=== PATIENT | female | born 1935 | race Caucasian/White ===

== ENCOUNTER → 2018-08-07 | Outpatient (CLI) | payer MEDICARE | END | disposition home or self-care (01) | LOC: RAD 15:26 | PROVIDERS: ATTEND Orthopaedic Surgery | DX: M47.812 Spondylosis without myelopathy or radiculopathy, cervical region (principal) | CPT/HCPCS: 72050 ==

== ENCOUNTER 2018-10-17 07:53 | Observation (INO) | payer MEDICARE ==
[~2018-10-17] VITALS: Ht 176 cm; Wt 65.4 kg
[2018-10-17] MEDS ORDERED: ASPIRIN 81 MG TABLET CHEW ONE (08:11)
[2018-10-17 08:17] LABS: BASOPHILS # (AUTO) 0.03 x10^3/uL (0-0.1); BASOPHILS % (AUTO) 0 % (0-1); EOSINOPHILS # (AUTO) 0.05 x10^3/uL (0-0.4); EOSINOPHILS % (AUTO) 1 % (1-7); LYMPHOCYTES # (AUTO) 1.59 x10^3/uL (1-3.4); LYMPHOCYTES % (AUTO) 23 % (22-44); MD NO; MEAN CORPUSCULAR HEMOGLOBIN 31.1 pg (27.0-34.8); MEAN CORPUSCULAR VOLUME 97.1 fL (80-100); MEAN PLATELET VOLUME 8.1 fL (7.4-10.4); MONOCYTES # (AUTO) 0.44 x10^3/uL (0.2-0.8); MONOCYTES % (AUTO) 6 % (2-9); NEUTROPHILS # (AUTO) 4.69 x10^3/uL (1.8-6.8); NEUTROPHILS % (AUTO) 69 % (42-75); PLATELET COUNT 175 x10^3/uL (130-400); RED BLOOD COUNT 4.84 x10^6/uL (3.82-5.3); RED CELL DISTRIBUTION WIDTH 14.1 % (9.6-15.2)
[2018-10-17] MEDS ORDERED: FLUT9.9S16 NAS (08:24)
[2018-10-17] MEDS ORDERED: UBID30CA9 PO (08:25)
[2018-10-17] MEDS ORDERED: LUTE20TA PO (08:26)
[2018-10-17 08:27] LABS: ANION GAP 7 mmol/L (5-15); CALCIUM 8.9 mg/dL (8.5-10.1); CHLORIDE 105 mmol/L (98-107)
[2018-10-17 08:35] LABS: ALANINE AMINOTRANSFERASE 26 U/L (12-78); ALKALINE PHOSPHATASE 64 U/L (45-117); BILIRUBIN,TOTAL 0.7 mg/dL (0.2-1.0); CREATININE 0.87 mg/dL (0.55-1.02); TOTAL PROTEIN 7.4 g/dL (6.4-8.2); TROPONIN I < 0.015 ng/mL (0.000-0.045)
[2018-10-17] MEDS ORDERED: SODIUM CHLORIDE FLUSH 10ML SYR IVF ONE (09:00)
[2018-10-17] MEDS ORDERED: ASPIRIN 81 MG TABLET CHEW PO ONE (09:00)
--- NOTE | 2018-10-17 11:24 | NUR ---
[facility] TELEPHONE HAND-OFF REPORT GIVEN TO RN KATHERIN. PATIENT READY TO GO TO HOSPITAL ROOM.
[2018-10-17 11:55] VITALS: BP 152/87
[2018-10-17 13:54] VITALS: BP 149/84
[2018-10-17] MEDS ORDERED: NITROGLYCERIN 0.4 MG BOTTLE (25 TABS) SL PRN (14:30)
[2018-10-17] MEDS: ENOXAPARIN 40 MG/0.4 ML SQ SCH (14:51)
[2018-10-17 16:02] LABS: TROPONIN I < 0.015 ng/mL (0.000-0.045)
[2018-10-17 20:41] VITALS: BP 144/69
[2018-10-17 20:43] LABS: TROPONIN I < 0.015 ng/mL (0.000-0.045)
[2018-10-17] MEDS ORDERED: ACETAMINOPHEN 325 MG TABLET PO PRN (23:00)
[2018-10-17] MEDS ORDERED: ACETAMINOPHEN 325 MG TABLET ONE (23:05)
[2018-10-18 00:20] VITALS: BP 138/65
[2018-10-18] MEDS: ASPIRIN 325 MG TABLET EC PO SCH (05:52)
[2018-10-18 06:13] LABS: CHOL/HDL RATIO 2.9; LDL/HDL RATIO 1.6 (0.5-3.0)
[2018-10-18 10:53] VITALS: BP 121/73
[2018-10-18] MEDS: ENOXAPARIN 40 MG/0.4 ML SQ SCH (15:14)
[2018-10-18 16:11] VITALS: BP 119/67
[2018-10-18 18:17] VITALS: BP 133/78
[2018-10-18 19:51] VITALS: BP 142/78
[2018-10-19 01:22] VITALS: BP 132/69
[2018-10-19] MEDS: ASPIRIN 325 MG TABLET EC PO SCH (05:28)
[2018-10-19] MEDS ORDERED: REGADENOSON 0.4 MG/5 ML SYRINGE ONE (08:03)
[2018-10-19 08:36] VITALS: BP 154/80
[2018-10-19 13:00] VITALS: BP 95/58
[2018-10-19] MEDS: ENOXAPARIN 40 MG/0.4 ML SQ SCH (14:06)
== END 2018-10-19 15:20 | disposition home or self-care (01) ==
LOC: ED 09:06 → INTOOBSV 09:17 → EDIP 09:17 → 5SO 11:43 → DCLOUNGE 10-19 15:07
PROVIDERS: ADMIT Internal Medicine; ATTEND Internal Medicine
DX: R07.89 Other chest pain (principal); E78.5 Hyperlipidemia, unspecified; M17.11 Unilateral primary osteoarthritis, right knee; R00.2 Palpitations; Z79.899 Other long term (current) drug therapy
CPT/HCPCS: 36415; 71045; 78452; 80053; 80061; 84443; 84484; 85025; 85379; 93005; 93017; 93306; 96372; 99284; A9502; C9898; G0378; J1650; J2785

== ENCOUNTER 2019-03-30 08:56 | Inpatient (IN) | payer MEDICARE ==
[~2019-03-30] VITALS: Ht 175.3 cm; Wt 56.5 kg
[~2019-03-30 08:56] MED LIST: ASPI-515 PO; CEFD300C37 PO; CIPR500T3 PO; FLUT9.9S16 NAS; LUTE20TA PO; POLY17PO5 PO; SENN-193 PO; UBID30CA9 PO
[2019-03-30] MEDS ORDERED: MORPHINE SULFATE 4 MG/ML, 1ML IVPush PRN (09:30)
[2019-03-30] MEDS ORDERED: FENTANYL PF 100 MCG/2ML IV PRN (09:30)
[2019-03-30] MEDS ORDERED: PLEASE ENTER HEIGHT AND WEIGHT MC SCH (09:30)
[2019-03-30] MEDS ORDERED: ONDANSETRON 2MG/ML, 2ML IV PRN (09:30)
[2019-03-30] MEDS ORDERED: LABETALOL 5 MG/ML SYR. (IV ONLY) IV PRN (09:30)
[2019-03-30] MEDS ORDERED: OXYcodone 5 MG/5 ML ORAL.SOL UDC PO PRN (09:30)
[2019-03-30] MEDS ORDERED: hydrALAzine 20 MG/ML, 1ML IV PRN (09:30)
[2019-03-30] MEDS ORDERED: PROMETHAZINE 25 MG/ML, 1ML IV PRN (09:30)
[2019-03-30] MEDS ORDERED: FENTANYL PF 250 MCG/5ML ONE (09:47)
[2019-03-30 09:50] VITALS: BP 149/72
[2019-03-30] MEDS ORDERED: SEROQUEL PO (10:05)
[2019-03-30] MEDS ORDERED: TYLENO (10:05)
[2019-03-30] MEDS ORDERED: TYLENOL PO (10:06)
[2019-03-30] MEDS: LACTATED RINGERS 1,000 ML IV SCH (10:08)
[2019-03-30] MEDS ORDERED: MIDAZOLAM 1 MG/ML, 2ML ONE (10:48)
[2019-03-30] MEDS ORDERED: EPHEDRINE 50 MG/ML, 1ML ONE (11:10)
[2019-03-30] MEDS ORDERED: ONDANSETRON 2MG/ML, 2ML ONE (11:12)
[2019-03-30] MEDS ORDERED: TRANEXAMIC ACID 100 MG/ML, 10ML ONE ×2 (11:15)
[2019-03-30] MEDS ORDERED: ONDANSETRON ODT 4 MG PO PRN (14:30)
[2019-03-30] MEDS ORDERED: HYDROmorphone 2MG TABLET PO PRN (14:30)
[2019-03-30] MEDS: CEFAZOLIN PMX 1GM/50ML 50 ML IVPB SCH (18:29)
[2019-03-30] MEDS: KETOROLAC 30 MG/1 ML IVPush SCH (18:30)
[2019-03-30 19:27] VITALS: BP 125/74
[2019-03-30] MEDS: SODIUM CHLORIDE FLUSH 10ML SYR IVF SCH (21:00)
[2019-03-31 00:13] VITALS: BP 109/65
[2019-03-31] MEDS: CEFAZOLIN PMX 1GM/50ML 50 ML IVPB SCH (02:47)
[2019-03-31] MEDS: KETOROLAC 30 MG/1 ML IVPush SCH ×2 (03:18→11:44)
[2019-03-31] MEDS: LACTATED RINGERS 1,000 ML IV SCH (05:06)
[2019-03-31 07:12] VITALS: BP 107/60
[2019-03-31] MEDS: SODIUM CHLORIDE FLUSH 10ML SYR IVF SCH ×2 (08:40→18:54)
[2019-03-31] MEDS: ENOXAPARIN 40 MG/0.4 ML SQ SCH ×2 (08:41→09:00)
[2019-03-31 13:12] VITALS: BP 130/70
[2019-03-31 18:45] VITALS: BP 108/63
[2019-03-31] MEDS: QUETIAPINE 25MG TABLET PO SCH (20:29)
[2019-03-31] MEDS: HYDROmorphone 2 MG/ML, 1ML IVPush PRN (22:31)
[2019-04-01 01:38] VITALS: BP 117/66
[2019-04-01] MEDS: LACTATED RINGERS 1,000 ML IV SCH ×2 (02:04→22:00)
[2019-04-01 05:29] LABS: CREATININE 0.57 mg/dL (0.55-1.02)
[2019-04-01 07:37] VITALS: BP 138/75
[2019-04-01] MEDS: ENOXAPARIN 40 MG/0.4 ML SQ SCH (08:49)
[2019-04-01] MEDS: SODIUM CHLORIDE FLUSH 10ML SYR IVF SCH ×2 (08:50→19:18)
[2019-04-01] MEDS: HYDROmorphone 2 MG/ML, 1ML IVPush PRN ×2 (09:10→14:31)
[2019-04-01 14:45] VITALS: BP 113/68
[2019-04-01 19:12] VITALS: BP 129/72
[2019-04-01] MEDS: QUETIAPINE 25MG TABLET PO SCH (19:18)
[2019-04-02 02:03] VITALS: BP 126/74
[2019-04-02 08:53] VITALS: BP 82/51
[2019-04-02] MEDS: SODIUM CHLORIDE FLUSH 10ML SYR IVF SCH ×2 (09:00→21:00)
[2019-04-02 12:57] VITALS: BP 90/59
[2019-04-02] MEDS: LACTATED RINGERS 1,000 ML IV SCH (18:00)
[2019-04-02 21:00] VITALS: BP 152/73
[2019-04-02] MEDS: QUETIAPINE 25MG TABLET PO SCH (21:34)
[2019-04-03 02:32] VITALS: BP 103/64
[2019-04-03 08:00] VITALS: BP 123/56
[2019-04-03] MEDS: SODIUM CHLORIDE FLUSH 10ML SYR IVF SCH ×2 (08:53→21:00)
[2019-04-03] MEDS: LACTATED RINGERS 1,000 ML IV SCH (10:05)
[2019-04-03] MEDS: HYDROcodone/APAP 7.5-325MG/15ML UDC PO PRN (14:48)
[2019-04-03] MEDS: DOCUSATE 100 MG CAPSULE PO SCH (20:10)
[2019-04-03] MEDS: QUETIAPINE 25MG TABLET PO SCH (20:10)
[2019-04-03 20:20] VITALS: BP 145/79
[2019-04-03] MEDS ORDERED: POLYETHYLENE GLYCOL 17 GM PACKET PO ONE (21:00)
[2019-04-04] MEDS: HYDROcodone/APAP 7.5-325MG/15ML UDC PO PRN ×4 (00:46→10:27)
[2019-04-04 01:16] VITALS: BP 151/81
[2019-04-04 06:54] VITALS: BP 130/71
[2019-04-04] MEDS ORDERED: ASPI-515 PO (07:25)
[2019-04-04] MEDS: LACTATED RINGERS 1,000 ML IV SCH (08:07)
[2019-04-04] MEDS: SODIUM CHLORIDE FLUSH 10ML SYR IVF SCH ×2 (08:08→20:53)
[2019-04-04] MEDS: ASPIRIN 81 MG TABLET CHEW PO SCH ×2 (08:46→20:53)
[2019-04-04] MEDS: DOCUSATE 100 MG CAPSULE PO SCH ×2 (08:46→20:53)
[2019-04-04] MEDS ORDERED: ZIPRASIDONE 20 MG INJ IM ONE ×3 (11:30→17:30)
[2019-04-04 12:58] VITALS: BP 132/63
[2019-04-04] MEDS: BISACODYL 10 MG SUPP PR PRN (15:20)
[2019-04-04 15:26] LABS: BASOPHILS # (AUTO) 0.01 x10^3/uL (0-0.1); BASOPHILS % (AUTO) 0 % (0-1); EOSINOPHILS # (AUTO) 0.07 x10^3/uL (0-0.4); EOSINOPHILS % (AUTO) 1 % (1-7); LYMPHOCYTES # (AUTO) 1.37 x10^3/uL (1-3.4); LYMPHOCYTES % (AUTO) 14 % (22-44); MD NO; MEAN CORPUSCULAR HEMOGLOBIN 30.3 pg (27.0-34.8); MEAN CORPUSCULAR HGB CONC 32.3 g/dL (32.4-35.8); MEAN PLATELET VOLUME 7.1 fL (7.4-10.4); MONOCYTES # (AUTO) 0.52 x10^3/uL (0.2-0.8); MONOCYTES % (AUTO) 6 % (2-9); NEUTROPHILS # (AUTO) 7.51 x10^3/uL (1.8-6.8); NEUTROPHILS % (AUTO) 79 % (42-75); PLATELET COUNT 312 x10^3/uL (130-400); RED BLOOD COUNT 4.19 x10^6/uL (3.82-5.3); RED CELL DISTRIBUTION WIDTH 13.6 % (9.6-15.2)
[2019-04-04 15:35] LABS: ALANINE AMINOTRANSFERASE 40 U/L (12-78); ALBUMIN 2.6 g/dL (3.4-5.0); ANION GAP 7 mmol/L (5-15); CALCIUM 8.6 mg/dL (8.5-10.1); CHLORIDE 105 mmol/L (98-107)
[2019-04-04 16:02] LABS: ALKALINE PHOSPHATASE 80 U/L (45-117); BILIRUBIN,TOTAL 0.7 mg/dL (0.2-1.0); CREATININE 0.68 mg/dL (0.55-1.02); TOTAL PROTEIN 6.4 g/dL (6.4-8.2)
[2019-04-04] MEDS ORDERED: ZIPRASIDONE 20 MG INJ IM PRN (17:30)
[2019-04-04] MEDS: QUETIAPINE 25MG TABLET PO SCH (20:53)
[2019-04-04 21:23] VITALS: BP 134/72
[2019-04-05] VITALS (10 sets, daily range): BP systolic 92–146; BP diastolic 51–87
[2019-04-05] MEDS: LACTATED RINGERS 1,000 ML IV SCH (06:00)
--- NOTE | 2019-04-05 08:02 | NUR ---
CAROLINA GAYTAN Fall Risk Medication(s) present and receiving anticoagulants. Signed: 04/05/19 at 0803 by Kaleb GAMEZ
[2019-04-05] MEDS: SODIUM CHLORIDE FLUSH 10ML SYR IVF SCH ×2 (08:31→20:36)
[2019-04-05] MEDS: DOCUSATE 100 MG CAPSULE PO SCH (08:32)
[2019-04-05] MEDS: ASPIRIN 81 MG TABLET CHEW PO SCH ×2 (08:32→20:35)
[2019-04-05] MEDS ORDERED: ERGOCALCIFEROL 50,000 UNIT CAPSULE PO SCH (11:00)
[2019-04-05 12:52] LABS: MICROSCOPIC INDICATED
[2019-04-05 13:23] LABS: CULTURE INDICATED? NO
[2019-04-05] MEDS: DOCUSATE 50 MG/5 ML, 10ML UDC PO SCH (20:34)
[2019-04-05] MEDS: QUETIAPINE 25MG TABLET PO SCH (20:35)
[2019-04-06] MEDS: LACTATED RINGERS 1,000 ML IV SCH ×2 (02:00→20:18)
[2019-04-06 04:10] VITALS: BP 128/74
[2019-04-06] MEDS: SODIUM CHLORIDE FLUSH 10ML SYR IVF SCH ×2 (09:00→20:18)
[2019-04-06 09:16] VITALS: BP 142/84
[2019-04-06] MEDS: ASPIRIN 81 MG TABLET CHEW PO SCH ×2 (09:17→20:18)
[2019-04-06] MEDS: DOCUSATE 50 MG/5 ML, 10ML UDC PO SCH ×2 (09:18→20:18)
[2019-04-06] MEDS: ACETAMINOPHEN 325 MG TABLET PO PRN (13:37)
[2019-04-06 14:12] VITALS: BP 106/63
[2019-04-06 20:05] VITALS: BP 147/76
[2019-04-06] MEDS: MELATONIN 5 MG TABLET PO SCH (20:18)
[2019-04-06] MEDS: QUETIAPINE 25MG TABLET PO SCH (20:18)
[2019-04-07 01:45] VITALS: BP 140/70
[2019-04-07 04:55] LABS: CREATININE 0.61 mg/dL (0.55-1.02)
[2019-04-07 09:54] VITALS: BP 108/66
[2019-04-07] MEDS: ASPIRIN 81 MG TABLET CHEW PO SCH ×2 (09:58→20:20)
[2019-04-07] MEDS: DOCUSATE 50 MG/5 ML, 10ML UDC PO SCH ×2 (09:58→20:19)
[2019-04-07] MEDS: SODIUM CHLORIDE FLUSH 10ML SYR IVF SCH ×2 (09:59→20:21)
[2019-04-07 14:02] VITALS: BP 101/53
[2019-04-07] MEDS ORDERED: ACET325T26 PO (16:10)
[2019-04-07] MEDS ORDERED: MELA5TAB14 PO (16:10)
[2019-04-07] MEDS ORDERED: BISA10SU4 PR (16:10)
[2019-04-07] MEDS ORDERED: QUET25TA7 PO (16:10)
[2019-04-07] MEDS: LACTATED RINGERS 1,000 ML IV SCH (18:00)
[2019-04-07 20:15] VITALS: BP 129/75
[2019-04-07] MEDS: QUETIAPINE 25MG TABLET PO SCH (20:19)
[2019-04-07] MEDS: MELATONIN 5 MG TABLET PO SCH (20:20)
[2019-04-08] MEDS: HYDROcodone/APAP 7.5-325MG/15ML UDC PO PRN (03:28)
[2019-04-08] MEDS: BISACODYL 10 MG SUPP PR PRN (06:01)
[2019-04-08] MEDS: LACTATED RINGERS 1,000 ML IV SCH (07:21)
[2019-04-08] MEDS: ASPIRIN 81 MG TABLET CHEW PO SCH (08:34)
[2019-04-08] MEDS: SODIUM CHLORIDE FLUSH 10ML SYR IVF SCH ×2 (09:00→20:15)
[2019-04-08] MEDS: DOCUSATE 50 MG/5 ML, 10ML UDC PO SCH ×2 (09:47→20:14)
[2019-04-08] MEDS: ACETAMINOPHEN 325 MG TABLET PO PRN (09:48)
[2019-04-08 11:31] VITALS: BP 105/56
[2019-04-08 11:42] LABS: MEAN CORPUSCULAR HEMOGLOBIN 30.4 pg (27.0-34.8); MEAN CORPUSCULAR HGB CONC 32.2 g/dL (32.4-35.8); MEAN CORPUSCULAR VOLUME 94.4 fL (80-100); MEAN PLATELET VOLUME 6.8 fL (7.4-10.4); PLATELET COUNT 293 x10^3/uL (130-400); RED BLOOD COUNT 3.47 x10^6/uL (3.82-5.3); RED CELL DISTRIBUTION WIDTH 13.6 % (9.6-15.2)
[2019-04-08 12:02] LABS: BASOPHILS # (AUTO) 0.02 x10^3/uL (0-0.1); BASOPHILS % (AUTO) 0 % (0-1); EOSINOPHILS # (AUTO) 0.03 x10^3/uL (0-0.4); EOSINOPHILS % (AUTO) 0 % (1-7); LYMPHOCYTES # (AUTO) 0.62 x10^3/uL (1-3.4); LYMPHOCYTES % (AUTO) 5 % (22-44); MD SCAN; MONOCYTES # (AUTO) 0.31 x10^3/uL (0.2-0.8); MONOCYTES % (AUTO) 2 % (2-9); NEUTROPHILS # (AUTO) 12.66 x10^3/uL (1.8-6.8); NEUTROPHILS % (AUTO) 93 % (42-75)
[2019-04-08 15:50] VITALS: BP 110/58
[2019-04-08 20:06] VITALS: BP 96/59
[2019-04-08] MEDS: QUETIAPINE 25MG TABLET PO SCH (20:14)
[2019-04-08] MEDS: MELATONIN 5 MG TABLET PO SCH (20:14)
[2019-04-09 02:32] VITALS: BP 107/65
[2019-04-09] MEDS: HYDROcodone/APAP 7.5-325MG/15ML UDC PO PRN (02:38)
[2019-04-09] MEDS: SODIUM CHLORIDE FLUSH 10ML SYR IVF SCH (07:27)
[2019-04-09] MEDS: LACTATED RINGERS 1,000 ML IV SCH (07:27)
[2019-04-09] MEDS: DOCUSATE 50 MG/5 ML, 10ML UDC PO SCH (07:28)
[2019-04-09 07:35] LABS: MEAN CORPUSCULAR HEMOGLOBIN 30.6 pg (27.0-34.8); MEAN CORPUSCULAR HGB CONC 32.7 g/dL (32.4-35.8); MEAN CORPUSCULAR VOLUME 93.3 fL (80-100); MEAN PLATELET VOLUME 7.1 fL (7.4-10.4); PLATELET COUNT 279 x10^3/uL (130-400); RED BLOOD COUNT 3.22 x10^6/uL (3.82-5.3); RED CELL DISTRIBUTION WIDTH 13.6 % (9.6-15.2)
[2019-04-09 07:46] LABS: INTERNATIONAL NORMALIZED RATIO 1.02 (0.93-1.1); PROTHROMBIN TIME 10.7 Seconds (9.6-11.5)
[2019-04-09 07:49] LABS: BASOPHILS # (AUTO) 0.06 x10^3/uL (0-0.1); BASOPHILS % (AUTO) 0 % (0-1); EOSINOPHILS # (AUTO) 0.04 x10^3/uL (0-0.4); EOSINOPHILS % (AUTO) 0 % (1-7); LYMPHOCYTES # (AUTO) 1.05 x10^3/uL (1-3.4); LYMPHOCYTES % (AUTO) 6 % (22-44); MD SCAN; MONOCYTES # (AUTO) 0.45 x10^3/uL (0.2-0.8); MONOCYTES % (AUTO) 2 % (2-9); NEUTROPHILS # (AUTO) 17.39 x10^3/uL (1.8-6.8); NEUTROPHILS % (AUTO) 92 % (42-75)
[2019-04-09 08:09] LABS: ALANINE AMINOTRANSFERASE 34 U/L (12-78); ALBUMIN 2.6 g/dL (3.4-5.0); ANION GAP 7 mmol/L (5-15); CALCIUM 8.3 mg/dL (8.5-10.1); CHLORIDE 106 mmol/L (98-107); CREATININE 0.76 mg/dL (0.55-1.02)
[2019-04-09 08:11] LABS: ALKALINE PHOSPHATASE 81 U/L (45-117); BILIRUBIN,TOTAL 0.8 mg/dL (0.2-1.0); TOTAL PROTEIN 5.9 g/dL (6.4-8.2)
[2019-04-09] MEDS ORDERED: FENTANYL PF 250 MCG/5ML ONE (09:36)
[2019-04-09 09:40] VITALS: BP 103/58
[2019-04-09] MEDS ORDERED: PROPOFOL 10 MG/ML, 20ML ONE (10:51)
[2019-04-09] MEDS ORDERED: PHENYLEPHRINE 10 MG/ML ONE (10:51)
[2019-04-09] MEDS ORDERED: LIDOCAINE PF 2%, 5ML ONE (10:51)
[2019-04-09] MEDS ORDERED: ROCURONIUM 10 MG/ML,10ML ONE (10:51)
[2019-04-09] MEDS ORDERED: SUCCINYLCHOLINE 20 MG/ML, 10ML ONE (10:51)
[2019-04-09] MEDS ORDERED: DEXAMETHASONE 4 MG/ML, 1ML ONE (10:51)
[2019-04-09] MEDS ORDERED: CEFAZOLIN PMX 1GM/50ML 50 ML IV SCH (11:00)
[2019-04-09] MEDS ORDERED: VANCOMYCIN PER PHARMACY MC PRN (11:00)
[2019-04-09] MEDS ORDERED: GENTAMICIN 80 MG/2 ML ONE (11:19)
[2019-04-09] MEDS ORDERED: VANCOMYCIN 1,000 MG ONE (11:20)
[2019-04-09] MEDS ORDERED: HALOPERIDOL 5 MG/ML IV PRN (11:30)
[2019-04-09] MEDS ORDERED: HYDROmorphone 2 MG/ML, 1ML IVPush PRN (11:30)
[2019-04-09] MEDS ORDERED: hydrALAzine 20 MG/ML, 1ML IV PRN (11:30)
[2019-04-09] MEDS ORDERED: PROMETHAZINE 25 MG/ML, 1ML IV PRN (11:30)
[2019-04-09] MEDS ORDERED: MIDAZOLAM 1 MG/ML, 2ML IV PRN (11:30)
[2019-04-09] MEDS ORDERED: ACETAMINOPHEN 325 MG TABLET PO PRN (11:30)
[2019-04-09] MEDS ORDERED: ALBUTEROL/IPRATROPIUM 2.5MG/0.5MG, 3 ML NPPB PRN (11:30)
[2019-04-09] MEDS ORDERED: FENTANYL PF 100 MCG/2ML IV PRN (11:30)
[2019-04-09] MEDS ORDERED: METOPROLOL 1 MG/ML, 5ML IV PRN (11:30)
[2019-04-09] MEDS ORDERED: OXYcodone 5 MG/5 ML ORAL.SOL UDC PO PRN (11:30)
[2019-04-09] MEDS ORDERED: EPINEPHRINE 2 MG in SODIUM CHLORIDE 0.9% 248 ML IV PRN (12:30)
[2019-04-09] MEDS ORDERED: PHARMACOKINETIC MONITORING MC PRN (12:30)
[2019-04-09] MEDS ORDERED: TRANEXAMIC ACID 1,000 MG in SODIUM CHLORIDE 0.9% 100 ML IV ONE (13:00)
[2019-04-09] MEDS ORDERED: EPINEPHRINE 4 MG in SODIUM CHLORIDE 0.9% 246 ML IV PRN (13:00)
[2019-04-09] MEDS ORDERED: SODIUM CHLORIDE 0.9%, 250ML ONE (13:13)
[2019-04-09] MEDS ORDERED: EPINEPHRINE 1 MG/ML, 1ML ONE (13:13)
[2019-04-09] MEDS ORDERED: MIDAZOLAM 1 MG/ML, 2ML ONE (13:14)
[2019-04-09] MEDS ORDERED: TRANEXAMIC ACID 100 MG/ML, 10ML ONE ×4 (14:48→14:49)
[2019-04-10] MEDS ORDERED: ASPIRIN 81 MG TABLET EC PO SCH (09:00)
== END 2019-04-09 13:29 | disposition expired | DRG 466 ==
LOC: ORIP 08:56 → 4NE 13:35
PROVIDERS: ADMIT Orthopaedic Surgery; ATTEND Internal Medicine
PROC: 0SPR0JZ Removal of Synthetic Substitute from Right Hip Joint, Femoral Surface, Open Approach (ICD-10-PCS; 2019-03-30)
PROC: 0SRR0J9 Replacement of Right Hip Joint, Femoral Surface with Synthetic Substitute, Cemented, Open Approach (ICD-10-PCS; principal; 2019-03-30 11:00)
PROC: 03HY32Z Insertion of Monitoring Device into Upper Artery, Percutaneous Approach (ICD-10-PCS; 2019-04-09)
PROC: 05HM33Z Insertion of Infusion Device into Right Internal Jugular Vein, Percutaneous Approach (ICD-10-PCS; 2019-04-09)
PROC: B543ZZA Ultrasonography of Right Jugular Veins, Guidance (ICD-10-PCS; 2019-04-09)
PROC: 0SRA0JZ Replacement of Right Hip Joint, Acetabular Surface with Synthetic Substitute, Open Approach (ICD-10-PCS; 2019-04-09)
PROC: 0SPA0JZ Removal of Synthetic Substitute from Right Hip Joint, Acetabular Surface, Open Approach (ICD-10-PCS; 2019-04-09)
DX: T84.194A Other mechanical complication of internal fixation device of right femur, initial encounter (principal); R53.2 Functional quadriplegia; I26.99 Other pulmonary embolism without acute cor pulmonale; I97.711 Intraoperative cardiac arrest during other surgery; D62 Acute posthemorrhagic anemia; F03.91 Unspecified dementia, unspecified severity, with behavioral disturbance; I50.32 Chronic diastolic (congestive) heart failure; M96.89 Other intraoperative and postprocedural complications and disorders of the musculoskeletal system; T84.020A Dislocation of internal right hip prosthesis, initial encounter; W06.XXXA Fall from bed, initial encounter; Y92.230 Patient room in hospital as the place of occurrence of the external cause; Y92.234 Operating room of hospital as the place of occurrence of the external cause; Y83.4 Other reconstructive surgery as the cause of abnormal reaction of the patient, or of later complication, without mention of misadventure at the time of the procedure; Y79.2 Prosthetic and other implants, materials and accessory orthopedic devices associated with adverse incidents; J44.9 Chronic obstructive pulmonary disease, unspecified; Z88.5 Allergy status to narcotic agent; Z88.8 Allergy status to other drugs, medicaments and biological substances; Z91.81 History of falling; Y93.9 Activity, unspecified; Y79.3 Surgical instruments, materials and orthopedic devices (including sutures) associated with adverse incidents
CPT/HCPCS: 36415; 70450; 71045; 72170; 80053; 81001; 82140; 82306; 82330; 82565; 82607; 82803; 82947; 83735; 84100; 84132; 84145; 84295; 84443; 85014; 85025; 85610; 85730; 86850; 86900; 93005; 93312; C1713; G0378; J0171; J0690; J1100; J1170; J1650; J1885; J2250; J2405; J2704; J3010; J3370; J3486; C1762; C1776; J0330; J1580; J2370; J7050; J7120